=== PATIENT | female | born 1990 | race Caucasian/White ===

== ENCOUNTER 2022-05-12 16:57 | Emergency (ER) | payer MEDICAID ==
[~2022-05-12] VITALS: Ht 162.6 cm; Wt 59.0 kg
[2022-05-12 17:06] VITALS: BP 129/67
[2022-05-12] MEDS ORDERED: IBUP-2029 MT (18:27)
[2022-05-12] MEDS ORDERED: CYCL10TA21 MT (18:27)
== END 2022-05-12 18:58 | disposition home or self-care (01) ==
LOC: ER 16:57
DX: S40.021A Contusion of right upper arm, initial encounter (principal); R55 Syncope and collapse; V49.60XA Unspecified car occupant injured in collision with unspecified motor vehicles in traffic accident, initial encounter; Y93.89 Activity, other specified; Y92.89 Other specified places as the place of occurrence of the external cause; Y99.8 Other external cause status
CPT/HCPCS: 73110; 73130; 93005; 99284